=== PATIENT | male | born 1990 | race Two or more races ===

== ENCOUNTER 2023-05-21 19:47 | Emergency (ER) | payer MEDICAID, OTHER ==
[~2023-05-21] VITALS: Ht 175.3 cm; Wt 95.6 kg
[2023-05-21 19:57] VITALS: BP 128/75; PULSE 91; RESP 18; O2SAT 97
== END 2023-05-21 21:45 | disposition left against medical advice (07) ==
LOC: ER 19:49
DX: H92.02 Otalgia, left ear (principal); Z53.21 Procedure and treatment not carried out due to patient leaving prior to being seen by health care provider